=== PATIENT | female | born 1940 | race Caucasian/White ===

== ENCOUNTER → 2017-03-19 | Outpatient (CLI) | payer MEDICARE, OTHER ==
[~2017-03-19] MED LIST: ASPI-1471 PO; ASPI-757 PO; ASPI81TA94 PO; BIOT1000 PO; BIOT1TAB12 PO; CALC600T72 PO; CELE-1 PO; CELE200C7 PO; CHOL200074 PO; DIA5 PO; GABA-549 PO; HYDR-385 PO; HYDR-389 PO; HYDR-4308 PO; HYDR-4309 PO; IBUP-56 PO; IOPAMIDOL 76% 75 ML INFUS BTL 75 ML ONE; LEVO-85 PO; LEVO25TA61 PO; LEVO50TA86 PO; MELO-207 PO; METO-253 PO; METO-259 PO; METO25TA23 PO; NS 0.9% 50 ML VIAL 50 ML ONE; OMEG-11 PO; OMEP-125 PO; OMEP-153 PO; OXYC-823 PO; PNEU0.5D3 IM; RANI-324 PO; RED600CA15 PO; RED600CA19 PO; RIZA10TA20 PO; SIMV-54 PO; SULF-198 PO; TRAM-420 PO; UBID100C33 PO; UBID10CA11 PO; [UNRECOGNIZED DRUG - CODE] TP
[2017-03-19 10:51] LABS: PLATELET COUNT, AUTOMATED 223 K/uL (150-450)
--- NOTE | 2017-03-19 13:47 | RADIOLOGY IMAGING REPORT ---
FACILITY: [facility] - [place] PATIENT NAME: Luiza Rosen : 1940 MR: [id number] V: [id number] EXAM DATE: ORDERING PHYSICIAN: CALLIE GARLAND TECHNOLOGIST: Location: [facility] Patient: Luiza Rosen : 1940 Visit/Account:[id number] Date of Sevice: 03/19/2017 ABDOMEN/PELVIS WITH CONTRAST HISTORY: RLQ pain for 4 days TECHNIQUE: Following administration of IV contrast contiguous axial images acquired through the abdom en/pelvis. Coronal and sagittal reformatting also performed. Dose Lowering Technique One of the following dose optimization techniques was utilized in the performance of this exam: Autom ated exposure control; adjustment of the mA and/or kV according to the patient's size; or use of an i terative reconstruction technique. Specific details can be referenced in the facility's radiology C T exam operational policy. CONTRAST: 75 mL Isovue-370 COMPARISON: July 04, 2015 FINDINGS: Visualized lung bases: Negative. Hepatobiliary: Negative. Spleen: Negative. Adrenals: Negative. Pancreas: Negative. Kidneys ureters or bladder: Negative. Genitalia: Uterus not identified GI: There is mild diverticulosis left-sided colon although no CT evidence of acute diverticulitis. There is a moderate amount of fecal material seen throughout the colon which can be seen with constip ation There is no evidence of bowel wall thickening or bowel obstruction. The appendix is visualized and is fluid-filled but does not appear dilated. No inflammatory change seen in the periappendiceal fat. Vessels/spaces/nodes: There are several small subcentimeter mesenteric lymph nodes in the right lowe r quadrant and several which peroneal lymph nodes. The largest measures 1 x 1 x 1.3 cm. There are m oderate vascular calcifications present Bones/soft tissues: There postsurgical changes from posterior lumbar interbody fusion at L4-5. Ther e is severe disc space narrowing and sclerosis of the adjacent endplates and anterior subluxation at L3-4. There is a small umbilical hernia containing fat Additional findings: None pertinent. IMPRESSION: Mild diverticulosis left-sided colon although no CT evidence of acute diverticulitis Is a moderate amount of fecal material seen in the colon which can be seen with constipation Several small mesenteric and right peroneal lymph nodes. These are likely reactive although if of co ncern short-term interval follow-up may be helpful Small umbilical hernia containing fat Postsurgical changes of the lumbar spine as described Report Dictated By: Angelita Martell MD at 03/19/2017 12:21 PM Report E-Signed By: Angelita Martell MD at 03/19/2017 1:41 PM WSN:[email or web address]
== END ==
LOC: LAB 10:11
PROVIDERS: ATTEND Emergency Medicine
DX: K57.30 Diverticulosis of large intestine without perforation or abscess without bleeding (principal); R59.0 Localized enlarged lymph nodes; K42.9 Umbilical hernia without obstruction or gangrene
CPT/HCPCS: 36415; 74177; 81001; 85025; 86140; J7050; Q9967; 82040; 82247; 82310; 82374; 82435; 82565; 82947; 84075; 84132; 84155; 84295; 84450; 84460; 84520

== ENCOUNTER 2017-03-22 06:30 | Emergency (ER) | payer MEDICARE, OTHER ==
[~2017-03-22] VITALS: Ht 160 cm; Wt 59.0 kg
[~2017-03-22 06:30] MED LIST changes: -HYDR-4309 PO; -IOPAMIDOL 76% 75 ML INFUS BTL 75 ML ONE; -LEVO-85 PO; -NS 0.9% 50 ML VIAL 50 ML ONE
[2017-03-22] MEDS ORDERED: NS(*) 0.9% 1000 ML BAG 1,000 ML IV ONE (06:57)
[2017-03-22] MEDS ORDERED: MORPHINE(*) 4 MG/ML SDV IVP ONE (07:00)
--- NOTE | 2017-03-22 07:00 | ER Report ---
History and Physical Time Seen By MD: 06:58 Hx. of Stated Complaint: right, lower abdominal, flank and back pain that started approximately 7 days ago. newest pain started last night at approximately 11pm HPI/ROS CHIEF COMPLAINT: Right sided flank and abdominal pain HISTORY OF PRESENT ILLNESS: This is a 76-year-old female comes in with right- sided abdominal discomfort for the last 6 days. Patient has had this pain and discomfort localized to the right flank and right upper abdominal area. Patient was CT scanned and was in 48 hours ago which showed some mild diverticulosis without diverticulitis some mild lymphadenopathy most likely adenitis but otherwise unremarkable examination blood work also performed unremarkable patient returns today [address] scan with the same complaint. Patient has been following up with primary care. Patient denies any nausea vomiting diarrhea fever chills. Patient denies any chest pain or shortness of breath. Patient has no additional complaints this time. REVIEW OF SYSTEMS: Respiratory: No cough, no dyspnea. Cardiovascular: No chest pain, no palpitations. Gastrointestinal: Right upper abdominal and right flank pain Musculoskeletal: No back pain. Remainder of the 14 system rev: Yes Allergies: Coded Allergies: solifenacin (Unverified Allergy, Intermediate, vision changes, 03/22/17) erythromycin base (Verified Allergy, Mild, 03/22/17) rofecoxib (Verified Allergy, Mild, 03/22/17) NSAIDS (Non-Steroidal Anti-Inflamma (Unverified Allergy, Unknown, stomach upset, 03/22/17) tramadol (Verified Adverse Reaction, Intermediate, Headaches and foginess , 03/22/17) Home Meds Active Scripts Simvastatin (SIMVASTATIN) 40 Mg Tablet, 40 MG PO HS, #90 TAB 3 Refills Prov:CALLIE GARLAND MD 02/18/17 Metoprolol Succinate (METOPROLOL SUCCINATE) 25 Mg Tab.er.24h, 1 TAB PO QDAY, # 90 TAB 3 Refills Prov:CALLIE GARLAND MD 02/18/17 Ranitidine Hcl (ZANTAC) 150 Mg Tablet, 150 MG PO DAILY, #90 TAB 3 Refills Prov:CALLIE GARLAND MD 02/18/17 Reported Medications Aspirin (ASPIR 81) 81 Mg Tablet.dr, 81 MG PO QDAY, TAB 02/18/17 Biotin (Jae Biotin) 10,000 Mcg Capsule, 87387 MCG PO DAILY 01/15/15 Discontinued Scripts Acetaminophen/Hydrocodone (HYDROCODON-ACETAMINOPH 7.5-325) 1 Each Ea, 1 EACH PO BID for PAIN, #60 EA Take half an hour before physical therpay Prov:CALLIE GARLAND MD 06/11/16 Reviewed Nurses Notes: Yes Old Medical Records Reviewed: Yes Hx Smoking: Yes (SMOKED 29 YEARS: 1PPD. QUIT 1987.) Smoking Status: Former Smoker Exposure to Second Hand Smoke?: No Hx Substance Use Disorder: No Hx Alcohol Use: No Constitutional Vital Sign - Last 24 Hours 03/22/17 06:35 Temp 98.6 Pulse 103 Resp 16 B/P (MAP) 138/78 Pulse Ox 97 O2 Delivery Room Air Physical Exam General Appearance: The patient is alert, has no immediate need for airway protection and no current signs of toxicity. [ ] Eyes: Pupils equal and round no injection. Respiratory: Chest is non tender, lungs are clear to auscultation. Cardiac: regular rate and rhythm [ ] Gastrointestinal: Abdominal examination demonstrates some pain and tenderness to the right upper quadrant positive Mckeon sign some mild right flank pain no sign of obvious shingles but does have a slight red pruritic rash on the right flank area she said that she has sensitive skin is been putting an Geo wrap in that area. Musculoskeletal: Neck: Neck is supple and non tender. Extremities have full range of motion and are non tender. Skin: No rashes or lesions. [ ] DIFFERENTIAL DIAGNOSIS: After history and physical exam differential diagnosis was considered for gallbladder cholelithiasis choledocholithiasis shingles versus diverticulitis or colitis versus diverticulosis Medical Decision Making Data Points Result Diagram: 03/22/17 0722 03/22/17 0722 Laboratory Hematology Test 03/22/17 07:02 03/22/17 07:22 Urine Color Yellow Urine Clarity Slightly-cloudy Urine pH 5.0 pH (4.8-9.5) Urine Specific [place] 1.019 Urine Protein Negative mg/dL (NEGATIVE) Urine Glucose (UA) Negative mg/dL (NEGATIVE) Urine Ketones Negative mg/dL (NEGATIVE) Urine Blood Negative (NEGATIVE) Urine Nitrite Negative (NEGATIVE) Urine Bilirubin Negative (NEGATIVE) Urine Urobilinogen Negative mg/dL (0.2-1.9) Urine Leukocyte Esterase Moderate (NEGATIVE) Urine RBC 6 /HPF (0-2/HPF) Urine WBC 21 /HPF (0-5/HPF) Urine Squamous Epithelial Cells Many /LPF (</=FEW) Urine Transitional Epithelial Cells Few /LPF (NONE-FEW) Urine Bacteria Negative /HPF (NONE-FEW) Urine Mucus Few /HPF (NONE-FEW) Red Blood Count 5.14 M/uL (4.17-5.56) Mean Corpuscular Volume 94.9 fL (80.0-96.0) Mean Corpuscular Hemoglobin 31.6 pg (26.0-33.0) Mean Corpuscular Hemoglobin Concent 33.3 g/dL (32.0-36.0) Red Cell Distribution Width 13.4 % (11.5-14.5) Mean Platelet Volume 8.6 fL (7.2-11.1) Neutrophils (%) (Auto) 73.0 % (39.4-72.5) Lymphocytes (%) (Auto) 16.4 % (17.6-49.6) Monocytes (%) (Auto) 7.9 % (4.1-12.4) Eosinophils (%) (Auto) 2.2 % (0.4-6.7) Basophils (%) (Auto) 0.5 % (0.3-1.4) Nucleated RBC Relative Count (auto) 0.1 /100WBC Neutrophils # (Auto) 5.7 K/uL (2.0-7.4) Lymphocytes # (Auto) 1.3 K/uL (1.3-3.6) Monocytes # (Auto) 0.6 K/uL (0.3-1.0) Eosinophils # (Auto) 0.2 K/uL (0.0-0.5) Basophils # (Auto) 0.0 K/uL (0.0-0.1) Nucleated RBC Absolute Count (auto) 0.01 K/uL Prothrombin Time 12.7 seconds (12.0-14.4) Prothromb Time International Ratio 0.95 Activated Partial Thromboplast Time 29 seconds (23-35) Sodium Level 141 mmol/L (137-145) Potassium Level 3.8 mmol/L (3.5-5.0) Chloride Level 101 mmol/L (98-107) Carbon Dioxide Level 28 mmol/L (22-31) Blood Urea Nitrogen 15 mg/dl (7-18) Creatinine 0.90 mg/dl (0.52-1.04) Glomerular Filtration Rate Calc > 60.0 Random Glucose 95 mg/dl (75-110) Calcium Level 9.8 mg/dl (8.4-10.2) Total Bilirubin 1.0 mg/dl (0.2-1.3) Aspartate Amino Transf (AST/SGOT) 33 U/L (0-35) Alanine Aminotransferase (ALT/SGPT) 38 U/L (0-56) Alkaline Phosphatase 86 U/L (0-126) Total Protein 7.3 gm/dl (6.3-8.2) Albumin 4.3 g/dl (3.5-5.0) Lipase 82 U/L (23-300) Chemistry Test 03/22/17 07:02 03/22/17 07:22 Urine Color Yellow Urine Clarity Slightly-cloudy Urine pH 5.0 pH (4.8-9.5) Urine Specific [place] 1.019 Urine Protein Negative mg/dL (NEGATIVE) Urine Glucose (UA) Negative mg/dL (NEGATIVE) Urine Ketones Negative mg/dL (NEGATIVE) Urine Blood Negative (NEGATIVE) Urine Nitrite Negative (NEGATIVE) Urine Bilirubin Negative (NEGATIVE) Urine Urobilinogen Negative mg/dL (0.2-1.9) Urine Leukocyte Esterase Moderate (NEGATIVE) Urine RBC 6 /HPF (0-2/HPF) Urine WBC 21 /HPF (0-5/HPF) Urine Squamous Epithelial Cells Many /LPF (</=FEW) Urine Transitional Epithelial Cells Few /LPF (NONE-FEW) Urine Bacteria Negative /HPF (NONE-FEW) Urine Mucus Few /HPF (NONE-FEW) White Blood Count 7.9 k/uL (4.5-11.0) Red Blood Count 5.14 M/uL (4.17-5.56) Hemoglobin 16.2 g/dL (12.0-16.0) Hematocrit 48.8 % (34.0-47.0) Mean Corpuscular Volume 94.9 fL (80.0-96.0) Mean Corpuscular Hemoglobin 31.6 pg (26.0-33.0) Mean Corpuscular Hemoglobin Concent 33.3 g/dL (32.0-36.0) Red Cell Distribution Width 13.4 % (11.5-14.5) Platelet Count 206 K/uL (150-450) Mean Platelet Volume 8.6 fL (7.2-11.1) Neutrophils (%) (Auto) 73.0 % (39.4-72.5) Lymphocytes (%) (Auto) 16.4 % (17.6-49.6) Monocytes (%) (Auto) 7.9 % (4.1-12.4) Eosinophils (%) (Auto) 2.2 % (0.4-6.7) Basophils (%) (Auto) 0.5 % (0.3-1.4) Nucleated RBC Relative Count (auto) 0.1 /100WBC Neutrophils # (Auto) 5.7 K/uL (2.0-7.4) Lymphocytes # (Auto) 1.3 K/uL (1.3-3.6) Monocytes # (Auto) 0.6 K/uL (0.3-1.0) Eosinophils # (Auto) 0.2 K/uL (0.0-0.5) Basophils # (Auto) 0.0 K/uL (0.0-0.1) Nucleated RBC Absolute Count (auto) 0.01 K/uL Prothrombin Time 12.7 seconds (12.0-14.4) Prothromb Time International Ratio 0.95 Activated Partial Thromboplast Time 29 seconds (23-35) Glomerular Filtration Rate Calc > 60.0 Calcium Level 9.8 mg/dl (8.4-10.2) Total Bilirubin 1.0 mg/dl (0.2-1.3) Aspartate Amino Transf (AST/SGOT) 33 U/L (0-35) Alanine Aminotransferase (ALT/SGPT) 38 U/L (0-56) Alkaline Phosphatase 86 U/L (0-126) Total Protein 7.3 gm/dl (6.3-8.2) Albumin 4.3 g/dl (3.5-5.0) Lipase 82 U/L (23-300) Coagulation Test 03/22/17 07:22 Prothrombin Time 12.7 seconds Prothromb Time International Ratio 0.95 Activated Partial Thromboplast Time 29 seconds Urinalysis Test 03/22/17 07:02 Urine Color Yellow Urine Clarity Slightly-cloudy Urine pH 5.0 pH (4.8-9.5) Urine Specific [place] 1.019 Urine Protein Negative mg/dL (NEGATIVE) Urine Glucose (UA) Negative mg/dL (NEGATIVE) Urine Ketones Negative mg/dL (NEGATIVE) Urine Blood Negative (NEGATIVE) Urine Nitrite Negative (NEGATIVE) Urine Bilirubin Negative (NEGATIVE) Urine Urobilinogen Negative mg/dL (0.2-1.9) Urine Leukocyte Esterase Moderate (NEGATIVE) Urine RBC 6 /HPF (0-2/HPF) Urine WBC 21 /HPF (0-5/HPF) Urine Squamous Epithelial Cells Many /LPF (</=FEW) Urine Transitional Epithelial Cells Few /LPF (NONE-FEW) Urine Bacteria Negative /HPF (NONE-FEW) Urine Mucus Few /HPF (NONE-FEW) ED Course/Re-evaluation ED Course ED clinical course medical decision making this 76-year-old female comes back to the ER with right-sided abdominal and right-sided flank pain CAT scan was done less than 48 hours ago was negative except for some diverticulosis an early diverticulitis she's not in spite of this of urinary tract infection and did ultrasound her gallbladder this was negative labsshowednothingacuteIwillstartheronantibioticsfortheUTIandforthediverticulitis andhaveherfollow -upwithprimarycarewithpainmedication Decision to Disposition Date: Mar 22, 2017 Decision to Disposition Time: 09:31 Depart Departure Latest Vital Signs Vital Signs Date Time Temp Pulse Resp B/P (MAP) Pulse Ox O2 Delivery O2 Flow Rate FiO2 03/22/17 06:35 98.6 103 16 138/78 97 Room Air Impression: Primary Impression: Urinary tract infection Additional Impression: Diverticulitis Condition: Improved Disposition: HOME OR SELF-CARE Referrals: CALLIE GARLAND MD (PCP) 5 Days New Scripts Hydrocodone Bit/Acetaminophen (NORCO 5-325 TABLET) 1 Each Tablet 1 EACH PO 2-3XD for PAIN for 7 Days, #20 TAB Prov: JOSUE KAPLAN MD 03/22/17 Levofloxacin 500 Mg Tab (LEVAQUIN 500 MG TAB) 500 Mg Tablet 500 MG PO BID for 7 Days, #14 TAB Prov: JOSUE KAPLAN MD 03/22/17 Patient Instructions: Diverticulitis (DC), Urinary Tract Infection in Women (DC ) Problem Qualifiers JOSUE KAPLAN MD Mar 22, 2017 07:00
[2017-03-22] MEDS ORDERED: MORPHINE 4 MG/ML SYR ONE (07:11)
[2017-03-22 07:39] LABS: PLATELET COUNT, AUTOMATED 206 K/uL (150-450)
[2017-03-22 07:45] LABS: INR 0.95
--- NOTE | 2017-03-22 08:21 | RADIOLOGY IMAGING REPORT ---
[place] [facility] [place] Luiza Rosen : 1940 MR: [id number] V: [id number] EXAM DATE: ORDERING PHYSICIAN: JOSUE KAPLAN TECHNOLOGIST: [place] [facility] [place]: Luiza Rosen : 1940 Visit/Account:[id number] Date of Sevice: 03/22/2017 Exam type: CHEST PA AND LAT History: Abdominal pain radiating towards her back Comparison: 02/24/2016 Findings: Lungs are hyperinflated. There is no focal consolidation, pleural effusion or pneumothorax. Heart size is slightly prominent. Pulmonary arteries are enlarged but unchanged. The osseous structures demonstrate a mild scoliosis with degenerative changes.. IMPRESSION: 1. No acute cardiopulmonary disease. 2. Pulmonary hyperinflation. 3. Mildly enlarged heart with large pulmonary arteries, unchanged. Report Dictated By: Nael Gamboa MD at 03/22/2017 8:14 AM Report E-Signed By: Nael Gamboa MD at 03/22/2017 8:16 AM WSN:[id number]
--- NOTE | 2017-03-22 09:11 | RADIOLOGY IMAGING REPORT ---
FACILITY: [facility] PATIENT NAME: Luiza Rosen : 1940 MR: [id number] V: [id number] EXAM DATE: ORDERING PHYSICIAN: JOSUE KAPLAN TECHNOLOGIST: Location: [facility] Patient: Luiza Rosen : 1940 Visit/Account:[id number] Date of Sevice: 03/22/2017 EXAMINATION: LIMITED ABDOMINAL ULTRASOUND DATE: 03/22/2017 6:57 AM INDICATION: pain TECHNIQUE: Dunn scale, color and pulsed Doppler ultrasound images of the right upper quadrant were ob tained. COMPARISON: CT abdomen and pelvis 03/19/2017. FINDINGS: Pancreas: The pancreas is suboptimally visualized in the tail. There is no significant abnormality in the visualized portion. Aorta and IVC: The imaged abdominal aorta and IVC are patent. Liver: The liver shows normal shape, parenchymal echogenicity and echotexture. The right hepatic lobe measures 11 cm craniocaudal, which is within normal limits. There is no definite focal lesion in the liver. The main portal vein is patent with hepatopedal flow. Bile ducts: The intrahepatic bile ducts are not dilated. The common bile duct measures 4 mm in diamet er, which is normal. Gallbladder: The gall bladder is unremarkable with no cholelithiasis, wall thickening, pericholecysti c fluid, or sonographic Mckeon's sign. Kidney: The right kidney measures 8.6 x 3.9 x 4.7 cm. The parenchymal echogenicity and thickness appe ar within normal range. No focal lesion is demonstrated. No hydronephrosis. Normal low resistance ar terial waveforms. No ascites. IMPRESSION: Unremarkable right upper quadrant ultrasound. Report Dictated By: Josiah Garcia MD at 03/22/2017 9:05 AM Report E-Signed By: Josiah Garcia MD at 03/22/2017 9:08 AM WSN:[id number]
[2017-03-22] MEDS ORDERED: LEVO-85 PO (09:33)
[2017-03-22] MEDS ORDERED: HYDR-4309 PO (09:33)
[2017-03-22 09:38] VITALS: BP 114/72
[2017-03-25] MEDS ORDERED: SULF-198 PO (11:58)
[2017-03-25] MEDS ORDERED: ONDA4TAB PO (12:00)
[2017-03-25] MEDS ORDERED: MELO-205 PO (12:00)
== END 2017-03-22 09:38 | disposition home or self-care (01) ==
LOC: ER 06:40
DX: N39.0 Urinary tract infection, site not specified (principal); K57.92 Diverticulitis of intestine, part unspecified, without perforation or abscess without bleeding
CPT/HCPCS: 71046; 76705; 81001; 83690; 85025; 85610; 85730; 96361; 96374; 99284; J2270; J7030; 82040; 82247; 82310; 82374; 82435; 82565; 82947; 84075; 84132; 84155; 84295; 84450; 84460; 84520

== ENCOUNTER → 2017-04-01 | Outpatient (CLI) | payer MEDICARE, OTHER ==
[~2017-04-01] MED LIST changes: +HYDR-4309 PO; +LEVO-85 PO; +MELO-205 PO; +ONDA4TAB PO
== END ==
LOC: LAB 10:47
PROVIDERS: ATTEND Emergency Medicine
DX: N39.0 Urinary tract infection, site not specified (principal)
CPT/HCPCS: 81001

== ENCOUNTER → 2017-04-07 | Outpatient (CLI) | payer MEDICARE, OTHER ==
[~2017-04-07] MED LIST changes: +CIPR-214 PO
== END ==
LOC: LAB 14:22
PROVIDERS: ATTEND Emergency Medicine
DX: R19.7 Diarrhea, unspecified (principal)
CPT/HCPCS: 87045; 87177; 87324; 87449

== ENCOUNTER → 2018-01-07 | Outpatient (CLI) | payer MEDICARE, OTHER ==
[~2018-01-07] MED LIST changes: -HYDR-4308 PO; -HYDR-4309 PO; +HYDR-653 PO; +HYDR-654 PO; -RANI-324 PO; +RANI-366 PO
--- NOTE | 2018-01-07 15:47 | RADIOLOGY IMAGING REPORT ---
FACILITY: [facility] - [place] PATIENT NAME: CONSTANCE HERNANDEZ : [id number] MR: [id number] V: [id number] EXAM DATE: [id number] ORDERING PHYSICIAN: CALLIE GARLAND TECHNOLOGIST: Candi See PROCEDURE:BILATERAL DIGITAL SCREENING MAMMOGRAM WITH CAD ASSISTED INTERPRETATION & 3D TOMOSYNTHESIS COMPARISON:Prior mammograms 01/06/17, 12/24/15, 12/18/14, 05/25/13, 02/04/12, 02/02/11. INDICATIONS:SCREENING FINDINGS: There are bilateral subpectoral breast implants in place. There is no evidence of implant rupture. Course capsular calcifications are again seen anterior to the implants. There is a biopsy clip in the medical inferior portion of the Right breast. Moderately dense fibroglandular tissue is seen anterior to the implants. The parenchymal pattern has remained stable allowing for difference in mammographic technique & patient positioning. There is no evidence of malignant appearing mass, malignant appearing calcifications or other secondary sign of malignancy in either breast. DIAGNOSTIC CATEGORY 2--BENIGN FINDING. RECOMMENDATIONS: ROUTINE MAMMOGRAM AND CLINICAL EVALUATION. IMPRESSION: BIRADS 2: Benign finding. No significant abnormality is seen. Dictated by: Angelita Martell M.D. on 01/07/2018 at 15:22 Transcribed by: SANTANA on 01/07/2018 at 15:30 Approved by: Angelita Martell M.D. on 01/07/2018 at 15:47 [facility]
== END ==
LOC: MAMO 02:40
PROVIDERS: ATTEND Emergency Medicine
DX: Z12.31 Encounter for screening mammogram for malignant neoplasm of breast (principal)
CPT/HCPCS: 77063; 77067

== ENCOUNTER → 2018-02-17 | Outpatient (CLI) | payer MEDICARE, OTHER ==
[2018-02-17 15:14] LABS: PLATELET COUNT, AUTOMATED 223 K/uL (150-450)
[2018-02-17 15:21] LABS: LDL CHOLESTEROL 41 mg/dl
== END ==
LOC: LAB 14:19
PROVIDERS: ATTEND Emergency Medicine
DX: E78.5 Hyperlipidemia, unspecified (principal); M85.80 Other specified disorders of bone density and structure, unspecified site
CPT/HCPCS: 36415; 82040; 82247; 82306; 82310; 82374; 82435; 82465; 82565; 82947; 83718; 84075; 84132; 84155; 84295; 84450; 84460; 84478; 84520; 85025

== ENCOUNTER 2018-04-30 04:23 | Emergency (ER) | payer MEDICARE, OTHER ==
--- NOTE | 2018-04-30 04:27 | ER Report ---
History and Physical Time Seen By MD: 04:25 (ISABELLE DELACRUZ DO) Time Seen By MD: 09:45 (RADHA MADSEN DO) HPI/ROS CHIEF COMPLAINT: Abdominal pain HISTORY OF PRESENT ILLNESS: 77-year-old female presents with upper abdominal pain radiating into her back. Patient states it feels similar to previous attack when she had pancreatitis 2001. Patient began having dry heaves and vomiting at 11 PM last night. Patient notes no diarrhea. She notes no fever or chills. REVIEW OF SYSTEMS: Respiratory: No cough, no dyspnea. Cardiovascular: No chest pain, no palpitations. Gastrointestinal: As above Musculoskeletal: As above (ISABELLE DELACRUZ DO) HPI/ROS Please see Dr. Delacruz's note (RADHA MADSEN DO) Allergies: Coded Allergies: solifenacin (Unverified Allergy, Intermediate, vision changes, 04/30/18) erythromycin base (Verified Allergy, Mild, 04/30/18) rofecoxib (Verified Allergy, Mild, 04/30/18) NSAIDS (Non-Steroidal Anti-Inflamma (Unverified Allergy, Unknown, stomach upset, 04/30/18) levofloxacin (Verified Allergy, Unknown, 04/30/18) tramadol (Verified Adverse Reaction, Intermediate, Headaches and foginess, 04/30/18) Home Meds Active Scripts Hydrocodone Bit/Acetaminophen (HYDROCODON-ACETAMINOPHEN 5-325) 1 Each Tablet, 1 EACH PO Q4-6H PRN for PAIN, #12 TAKE ONE TABLET BY MOUTH EVERY 4-6 HOURS NEEDED FOR PAIN Prov:ISABELLE DELACRUZ DO 04/30/18 Ondansetron 4 Mg Odt (ONDANSETRON 4 MG ODT) 4 Mg Tab.rapdis, 4 MG PO Q6H PRN for NAUSEA/VOMITING, #10 TAB Prov:ISABELLE DELACRUZ DO 04/30/18 Meloxicam (MELOXICAM) 7.5 Mg Tablet, 2 TAB PO QDAY, #180 TAB 3 Refills Take 1-2 tabs a day as needed. Maximum of 2 tabs a day Prov:CALLIE GARLAND MD 02/28/18 Metoprolol Succinate (METOPROLOL SUCCINATE) 25 Mg Tab.er.24h, 1 TAB PO QDAY, #90 TAB 3 Refills Prov:CALLIE GARLAND MD 02/25/18 Simvastatin (SIMVASTATIN) 40 Mg Tablet, 40 MG PO HS, #90 TAB 3 Refills Prov:CALLIE GARLAND MD 02/23/18 Reported Medications Aspirin (ASPIR 81) 81 Mg Tablet., 81 MG PO QDAY, TAB 02/18/17 Biotin (Jae Biotin) 10,000 Mcg Capsule, 31765 MCG PO DAILY 01/15/15 Discontinued Scripts Ranitidine Hcl (ZANTAC) 150 Mg Tablet, 150 MG PO DAILY, #90 TAB 3 Refills Prov:CALLIE GARLAND MD 03/24/18 Past Medical/Surgical History Past Medical History Neurologic: Reports hx of: migraine (none since 2005. ) other neurologic history (cervical radiculitis with pain into right arm at times. no meds for it, resolved.) Cardiovascular: Reports hx of: cardiac arrhythmias (paroxysmal SVT controlled with metoprolol. Was seeing Dr. Swan.) hyperlipidemia other CV history (normal coronary angio in 1990 in [place]. ) Gastrointestinal: Reports hx of: GERD pancreatitis (2006: 4cm "mass" but cause not found., biopsy ngative) 2 Musculoskeletal: Reports hx of: osteoarthritis (more in hands. ) osteopenia (Resolved) Endocrine: Reports hx of: hypothyroidism Events: REPORTS HX OF: Other events (Dog bite right calf 2012. abstracted 05/06. Annual in 2012. ) Past Surgical History HEENT: Reports hx of: cataract extraction (2016) Gynecologic: Reports hx of: hysterectomy (1982) Breast: Reports hx of: breast biopsy mastectomy, bilateral (prophylactic 1977) Musculoskeletal: Reports hx of: arthroscopy (R and L knee) carpal tunnel release (1977, 1982) spinal surgery (lumbar x2, cervical x1) total joint replacement (RTK , Left Total knee replacement on 03/24/16) (ISABELLE DELACRUZ DO) Reviewed Nurses Notes: Yes Old Medical Records Reviewed: Yes (ISABELLE DELACRUZ DO) Hx Smoking: Yes (SMOKED 29 YEARS: 1PPD. QUIT 1987.) Smoking Status: Former Smoker Exposure to Second Hand Smoke?: No Hx Substance Use Disorder: No Hx Alcohol Use: No (ISABELLE DELACRUZ DO) Constitutional Vital Sign - Last 24 Hours 04/30/18 04/30/18 04/30/18 04/30/18 04:29 04:30 04:38 04:53 Pulse 69 51 58 Resp 14 B/P (MAP) 156/75 156/75 (102) Pulse Ox 90 92 85 O2 Delivery Room Air 04/30/18 04/30/18 04/30/18 04/30/18 05:00 05:08 05:23 05:38 Pulse 48 55 65 B/P (MAP) 131/59 (83) Pulse Ox 96 97 98 04/30/18 04/30/18 04/30/18 04/30/18 05:53 06:00 06:19 08:05 Pulse 51 63 B/P (MAP) 134/65 (88) Pulse Ox 96 98 O2 Delivery Nasal Cannula O2 Flow Rate 2.0 2 04/30/18 04/30/18 04/30/18 04/30/18 08:17 08:30 08:35 09:00 Pulse 63 B/P (MAP) 129/79 (96) 95/84 (88) 114/59 (77) Pulse Ox 99 O2 Delivery Nasal Cannula O2 Flow Rate 2 04/30/18 09:30 B/P (MAP) 105/51 (69) (RADHA MADSEN DO) Physical Exam General Appearance: The patient is alert, has no immediate need for airway protection and no current signs of toxicity. Vital signs stable, afebrile, pulse ox normal on the moderate distress HEENT: Pupils equal and round no injection. TMs normal, oropharynx without erythema Respiratory: Chest is non tender, lungs are clear to auscultation. Cardiac: regular rate and rhythm Gastrointestinal: Abdomen is soft, moderate bilateral upper quadrant tenderness, no rebound or guarding, no masses, bowel sounds normal. Musculoskeletal: Neck: Neck is supple and non tender. No lymphadenopathy Extremities have full range of motion and are non tender. Skin: No rashes or lesions. DIFFERENTIAL DIAGNOSIS: After history and physical exam differential diagnosis was considered for abdominal pain including but not limited to appendicitis, cholecystitis, gastritis and urinary tract infection. (ISABELLE DELACRUZ DO) Physical Exam Please see Dr. Delacruz's note (RADHA MADSEN DO) Medical Decision Making Data Points Result Diagram: 04/30/18 0433 04/30/18 0433 Laboratory Hematology Test 04/30/18 04:33 04/30/18 05:40 Red Blood Count 4.73 M/uL (4.17-5.56) Mean Corpuscular Volume 96.1 fL (80.0-96.0) Mean Corpuscular Hemoglobin 31.8 pg (26.0-33.0) Mean Corpuscular Hemoglobin Concent 33.1 g/dL (32.0-36.0) Red Cell Distribution Width 13.5 % (11.5-14.5) Mean Platelet Volume 8.8 fL (7.2-11.1) Neutrophils (%) (Auto) 80.6 % (39.4-72.5) Lymphocytes (%) (Auto) 13.2 % (17.6-49.6) Monocytes (%) (Auto) 4.2 % (4.1-12.4) Eosinophils (%) (Auto) 1.2 % (0.4-6.7) Basophils (%) (Auto) 0.8 % (0.3-1.4) Nucleated RBC Relative Count (auto) 0.0 /100WBC Neutrophils # (Auto) 6.8 K/uL (2.0-7.4) Lymphocytes # (Auto) 1.1 K/uL (1.3-3.6) Monocytes # (Auto) 0.4 K/uL (0.3-1.0) Eosinophils # (Auto) 0.1 K/uL (0.0-0.5) Basophils # (Auto) 0.1 K/uL (0.0-0.1) Nucleated RBC Absolute Count (auto) 0.00 K/uL Sodium Level 138 mmol/L (137-145) Potassium Level 4.2 mmol/L (3.5-5.0) Chloride Level 103 mmol/L (98-107) Carbon Dioxide Level 30 mmol/L (22-31) Blood Urea Nitrogen 20 mg/dl (7-18) Creatinine 1.00 mg/dl (0.52-1.04) Glomerular Filtration Rate Calc 53.6 Random Glucose 151 mg/dl (75-110) Calcium Level 9.8 mg/dl (8.4-10.2) Total Bilirubin 0.7 mg/dl (0.2-1.3) Aspartate Amino Transf (AST/SGOT) 35 U/L (0-35) Alanine Aminotransferase (ALT/SGPT) 50 U/L (0-56) Alkaline Phosphatase 115 U/L (0-126) Total Protein 7.6 g/dl (6.3-8.2) Albumin 4.8 g/dl (3.5-5.0) Amylase Level 79 U/L (0-110) Lipase 93 U/L (23-300) Urine Color Yellow Urine Clarity Clear Urine pH 6.0 pH (4.8-9.5) Urine Specific [place] 1.025 Urine Protein Negative mg/dL (NEGATIVE) Urine Glucose (UA) Negative mg/dL (NEGATIVE) Urine Ketones Negative mg/dL (NEGATIVE) Urine Blood Negative (NEGATIVE) Urine Nitrite Negative (NEGATIVE) Urine Bilirubin Negative (NEGATIVE) Urine Urobilinogen Negative mg/dL (0.2-1.9) Urine Leukocyte Esterase Negative (NEGATIVE) Urine RBC 1 /HPF (0-2/HPF) Urine WBC 1 /HPF (0-5/HPF) Urine Squamous Epithelial Cells Few /LPF (</=FEW) Urine Bacteria Negative /HPF (NONE-FEW) Urine Mucus None /HPF (NONE-FEW) Chemistry Test 04/30/18 04:33 04/30/18 05:40 White Blood Count 8.4 k/uL (4.5-11.0) Red Blood Count 4.73 M/uL (4.17-5.56) Hemoglobin 15.0 g/dL (12.0-16.0) Hematocrit 45.4 % (34.0-47.0) Mean Corpuscular Volume 96.1 fL (80.0-96.0) Mean Corpuscular Hemoglobin 31.8 pg (26.0-33.0) Mean Corpuscular Hemoglobin Concent 33.1 g/dL (32.0-36.0) Red Cell Distribution Width 13.5 % (11.5-14.5) Platelet Count 189 K/uL (150-450) Mean Platelet Volume 8.8 fL (7.2-11.1) Neutrophils (%) (Auto) 80.6 % (39.4-72.5) Lymphocytes (%) (Auto) 13.2 % (17.6-49.6) Monocytes (%) (Auto) 4.2 % (4.1-12.4) Eosinophils (%) (Auto) 1.2 % (0.4-6.7) Basophils (%) (Auto) 0.8 % (0.3-1.4) Nucleated RBC Relative Count (auto) 0.0 /100WBC Neutrophils # (Auto) 6.8 K/uL (2.0-7.4) Lymphocytes # (Auto) 1.1 K/uL (1.3-3.6) Monocytes # (Auto) 0.4 K/uL (0.3-1.0) Eosinophils # (Auto) 0.1 K/uL (0.0-0.5) Basophils # (Auto) 0.1 K/uL (0.0-0.1) Nucleated RBC Absolute Count (auto) 0.00 K/uL Glomerular Filtration Rate Calc 53.6 Calcium Level 9.8 mg/dl (8.4-10.2) Total Bilirubin 0.7 mg/dl (0.2-1.3) Aspartate Amino Transf (AST/SGOT) 35 U/L (0-35) Alanine Aminotransferase (ALT/SGPT) 50 U/L (0-56) Alkaline Phosphatase 115 U/L (0-126) Total Protein 7.6 g/dl (6.3-8.2) Albumin 4.8 g/dl (3.5-5.0) Amylase Level 79 U/L (0-110) Lipase 93 U/L (23-300) Urine Color Yellow Urine Clarity Clear Urine pH 6.0 pH (4.8-9.5) Urine Specific [place] 1.025 Urine Protein Negative mg/dL (NEGATIVE) Urine Glucose (UA) Negative mg/dL (NEGATIVE) Urine Ketones Negative mg/dL (NEGATIVE) Urine Blood Negative (NEGATIVE) Urine Nitrite Negative (NEGATIVE) Urine Bilirubin Negative (NEGATIVE) Urine Urobilinogen Negative mg/dL (0.2-1.9) Urine Leukocyte Esterase Negative (NEGATIVE) Urine RBC 1 /HPF (0-2/HPF) Urine WBC 1 /HPF (0-5/HPF) Urine Squamous Epithelial Cells Few /LPF (</=FEW) Urine Bacteria Negative /HPF (NONE-FEW) Urine Mucus None /HPF (NONE-FEW) Urinalysis Test 04/30/18 05:40 Urine Color Yellow Urine Clarity Clear Urine pH 6.0 pH (4.8-9.5) Urine Specific [place] 1.025 Urine Protein Negative mg/dL (NEGATIVE) Urine Glucose (UA) Negative mg/dL (NEGATIVE) Urine Ketones Negative mg/dL (NEGATIVE) Urine Blood Negative (NEGATIVE) Urine Nitrite Negative (NEGATIVE) Urine Bilirubin Negative (NEGATIVE) Urine Urobilinogen Negative mg/dL (0.2-1.9) Urine Leukocyte Esterase Negative (NEGATIVE) Urine RBC 1 /HPF (0-2/HPF) Urine WBC 1 /HPF (0-5/HPF) Urine Squamous Epithelial Cells Few /LPF (</=FEW) Urine Bacteria Negative /HPF (NONE-FEW) Urine Mucus None /HPF (NONE-FEW) (RADHA MADSEN DO) EKG/Imaging Imaging Location: [facility] - [place] Patient: Luiza Rosen : 1940 Visit/Account:[id number] Date of Sevice: 04/30/2018 CT ABDOMEN PELVIS W/ CON HISTORY: mesenteric mass TECHNIQUE: CT abdomen and pelvis with oral contrast only. One of the following dose optimization techniques was utilized in the performance of this exam: automated exposure control; adjustment of the mA and/or kV according to the patient's size; or use of an iterative reconstruction technique. Specific details can be referenced in the facility's radiology CT exam operational policy. COMPARISON: CT abdomen and pelvis 12/28/2018 at 6:[address] abdomen and pelvis 03/19/2017. FINDINGS: Liver/gallbladder: Liver demonstrates normal attenuation. Gallbladder is normal. Spleen: Normal. Adrenals: Normal. Pancreas: Normal enhancement without evidence of mass. Kidneys/: The right and left kidney demonstrate normal enhancement without evidence of hydronephrosis or mass. Both ureters are normal. Pelvis: Contrast is seen in the urinary bladder. GI: There is a soft tissue mass, along the mesenteric root, 3.1 cm. This is unchanged from the prior study. No other abdominal mass is seen. Contrast is seen in the stomach duodenum and proximal third of the small bowel. The colon is normal. Vessels/spaces/nodes: Negative. Bones/soft tissues: There are postoperative changes with hardware in the lumbar spine. Visualized lung bases: Clear. IMPRESSION: Soft tissue mass along the root of the mesentery. This does not appear to communicate with bowel. Differential diagnosis includes lymphoma, gastrointestinal stromal tumor, carcinoid, or metastasis. Due to its location, it would not be amenable to CT-guided biopsy. (RADHA MADSEN DO) ED Course/Re-evaluation Clinical Indication for ER IV: Hydration, IV Access ED Course Patient was admitted to an examination room. H&P was done. The differential diagnosis was considered. Patient was treated with IV fluids, Zofran, fentanyl, her diagnostic studies returned unremarkable. Patient describes bilateral upper quadrant pain radiating to her back, similar to her previous episode of pancreatitis. Although her laboratory studies are unremarkable. 04/30/2018 6:01:13 am is in with continued abdominal pain despite 50 of fentanyl and Zofran. She is in the bed, writhing in discomfort. Will proceed to CT of the abdomen and pelvis with IV contrast. Care was turned over to Dr. Madsen at shift change with the CT results pending. Decision to Disposition Date: Apr 30, 2018 Decision to Disposition Time: 05:50 (ISABELLE DELACRUZ DO) ED Course I assumed patient care from Dr. Delacruz at shift change. CT imaging with IV contrast identified a deep mesenteric mass. It was unclear whether or not the mass was communicating with the bowels oral contrasted CT exam was completed. I discussed the patient with Dr. Shine who recommended moving forward with the oral contrasted study and outpatient follow-up for likely need for laparoscopic biopsy due to location. I updated the patient regarding these findings and she voiced understanding and agreed to follow-up in the outpatient setting with general surgery. Patient was stable at time of discharge Decision to Disposition Date: Apr 30, 2018 Decision to Disposition Time: 09:45 (RADHA MADSEN DO) Depart Departure Latest Vital Signs Vital Signs Date Time Temp Pulse Resp B/P (MAP) Pulse Ox O2 Delivery O2 Flow Rate FiO2 04/30/18 09:30 105/51 (69) 04/30/18 08:35 63 99 Nasal Cannula 2 04/30/18 04:29 14 (RADHA MADSEN DO) Impression: Primary Impression: Abdominal pain Additional Impressions: Vomiting Abdominal mass Condition: Improved Disposition: HOME OR SELF-CARE Referrals: CALLIE GARLAND MD (PCP) New Scripts Hydrocodone Bit/Acetaminophen (HYDROCODON-ACETAMINOPHEN 5-325) 1 Each Tablet 1 EACH PO Q4-6H PRN for PAIN, #12 TAKE ONE TABLET BY MOUTH EVERY 4-6 HOURS NEEDED FOR PAIN Prov: ISABELLE DELACRUZ DO 04/30/18 Ondansetron 4 Mg Odt (ONDANSETRON 4 MG ODT) 4 Mg Tab.rapdis 4 MG PO Q6H PRN for NAUSEA/VOMITING, #10 TAB Prov: ISABELLE DELACRUZ DO 04/30/18 Patient Instructions: Abdominal Pain (ED), Clear Liquid Diet (ED) Additional Instructions: Follow clear liquid diet for 24-48 hours, then advance to the brat diet, bananas , rice, applesauce and toast Follow-up with general surgery in 3-5 days Problem Qualifiers Primary Impression: Abdominal pain Abdominal location: upper abdomen, unspecified Qualified Codes: R10.10 - Upper abdominal pain, unspecified Additional Impressions: Vomiting Vomiting type: unspecified Vomiting Intractability: unspecified Nausea presence: with nausea Qualified Codes: R11.2 - Nausea with vomiting, unspecified ISABELLE DELACRUZ DO Apr 30, 2018 04:27 RADHA MADSEN DO Apr 30, 2018 09:46
[2018-04-30] MEDS ORDERED: ONDANSETRON 4 MG/2 ML VIAL IVP ONE (04:40)
[2018-04-30] MEDS ORDERED: NS(*) 0.9% 1000 ML BAG 1,000 ML IV ONE (04:40)
[2018-04-30] MEDS ORDERED: fentaNYL CITR 100 MCG/2 ML AMP IVP ONE (04:40)
[2018-04-30 04:56] LABS: PLATELET COUNT, AUTOMATED 189 K/uL (150-450)
[2018-04-30] MEDS ORDERED: ONDA4TAB9 PO (05:56)
[2018-04-30] MEDS ORDERED: LOR5/325 PO (05:56)
[2018-04-30] MEDS ORDERED: MORPHINE 4 MG/ML SDV IVP ONE ×2 (06:05→08:15)
[2018-04-30] MEDS ORDERED: IOPAMIDOL 76% 150 ML INFUS BTL 150 ML ONE (06:44)
--- NOTE | 2018-04-30 07:34 | RADIOLOGY IMAGING REPORT ---
FACILITY: [facility] - [place] PATIENT NAME: Luiza Rosen : 1940 MR: [id number] V: [id number] EXAM DATE: ORDERING PHYSICIAN: ISABELLE GALEAS TECHNOLOGIST: Location: [facility] [place] Patient: Luiza Rosen : 1940 Visit/Account:[id number] Date of Sevice: 04/30/2018 CT ABDOMEN PELVIS W/ CON HISTORY: Severe abdominal pain for 2 days. History of pancreatic lesion. COMPARISON: 03/19/2017 and studies dating to 02/05/2006. TECHNIQUE: Axial images were obtained from the lung bases through the symphysis pubis with intravenou s contrast. Sagittal and coronal reformats were performed. One of the following dose optimization techniques was utilized in the performance of this exam: Autom ated exposure control; adjustment of the mA and/or kV according to the patient's size; or use of an i terative reconstruction technique. Specific details can be referenced in the facility's radiology CT exam operational policy. CONTRAST: 75 mL IV [id number]. FINDINGS: Lower chest: There is minimal atelectasis. Liver: New from previous examination is an 8 mm too small to characterize low attenuating lesion in s egment V (image 39 series 2). Gallbladder/biliary: Normal. Pancreas: Normal. There is stable calcification in the pancreatic tail. Spleen: Normal. Adrenals: Normal. Kidneys/ureters/bladder: Normal. GI/mesentery/peritoneal cavity: There is a small type I hiatal hernia. There is no bowel obstruction. There is no wall thickening or pericolonic stranding. The appendix is normal. There is sigmoid diver ticulosis without diverticulitis. There is a macrolobulated 2.7 x 2.7 x 5.4 cm mesenteric lesion with eccentric low-attenuation (axial images 71 through 86 series 2, sagittal image 60, and coronal image 36) that has similar density to adjacent bowel loops, although it does appear to be separate from th em. Vessels: There is mild atherosclerotic disease. No aneurysm. No dissection. Nodes: 1.0 cm short axis diameter retroperitoneal node (image 46 series 2) is unchanged from February 2017. There is an 8 mm short axis diameter retroperitoneal node on image 44, unchanged. Pelvis: Uterus is absent. Ovaries are normal. Bones/vertebra/soft tissues: There are calcifications in the subcutaneous fat of the posterior pelvis , likely calcified granulomas. There is stable changes of posterior fusion at L5-S1. Hardware causes artifact. There is 6 mm anterolisthesis of L3 on L4, unchanged. There is severe degenerative disc dis ease at L3-4, stable. There is 2 mm retrolisthesis of L1 compared to L2, unchanged. There are vacuum clefts at L1-2, L2-3 and L5-S1, as well as T10-11. IMPRESSION: 1. No pancreatic lesion. 2. There is a mesenteric mass adjacent to small bowel loops, although appears separate from them, wit h eccentric low-attenuation, likely necrosis. Follow-up CT scan with oral contrast could be performed to ensure no communication with bowel. Findings are suspicious for malignancy. 3. New 8 mm too small to characterize low attenuating lesion in hepatic segment V. In the setting of potential mesenteric malignancy, metastatic disease is a possibility. These findings were discussed by phone with MIRIAM BROUSSARD on 04/30/2018 7:25 AM. Report Dictated By: Mirtha Smiley at 04/30/2018 6:57 AM Report E-Signed By: Mirtha Smiley at 04/30/2018 7:30 AM WSN:[id number]
[2018-04-30] MEDS ORDERED: DIATRIZOATE MEGL/DIATRIZOA SOD 367 MG/ML SOLN ONE (08:27)
[2018-04-30 09:30] VITALS: BP 105/51
--- NOTE | 2018-04-30 09:31 | RADIOLOGY IMAGING REPORT ---
FACILITY: [facility] PATIENT NAME: Luiza Rosen : 1940 MR: [id number] V: [id number] EXAM DATE: ORDERING PHYSICIAN: RADHA BROUSSARD TECHNOLOGIST: Location: [facility] Patient: Luiza Rosen : 1940 Visit/Account:[id number] Date of Sevice: 04/30/2018 CT ABDOMEN PELVIS W/ CON HISTORY: mesenteric mass TECHNIQUE: CT abdomen and pelvis with oral contrast only. One of the following dose optimization te chniques was utilized in the performance of this exam: automated exposure control; adjustment of the mA and/or kV according to the patient's size; or use of an iterative reconstruction technique. Speci fic details can be referenced in the facility's radiology CT exam operational policy. COMPARISON: CT abdomen and pelvis 12/28/2018 at 6:[address] abdomen and pelvis 03/19/2017. FINDINGS: Liver/gallbladder: Liver demonstrates normal attenuation. Gallbladder is normal. Spleen: Normal. Adrenals: Normal. Pancreas: Normal enhancement without evidence of mass. Kidneys/: The right and left kidney demonstrate normal enhancement without evidence of hydronephro sis or mass. Both ureters are normal. Pelvis: Contrast is seen in the urinary bladder. GI: There is a soft tissue mass, along the mesenteric root, 3.1 cm. This is unchanged from the prior study. No other abdominal mass is seen. Contrast is seen in the stomach duodenum and proximal third of the small bowel. The colon is normal. Vessels/spaces/nodes: Negative. Bones/soft tissues: There are postoperative changes with hardware in the lumbar spine. Visualized lung bases: Clear. IMPRESSION: Soft tissue mass along the root of the mesentery. This does not appear to communicate with bowel. Dif ferential diagnosis includes lymphoma, gastrointestinal stromal tumor, carcinoid, or metastasis. Due to its location, it would not be amenable to CT-guided biopsy. Report Dictated By: George Pruitt at 04/30/2018 9:13 AM Report E-Signed By: George Pruitt at 04/30/2018 9:27 AM WSN:[id number]
== END 2018-04-30 10:09 | disposition home or self-care (01) ==
LOC: ER 04:51
DX: R19.00 Intra-abdominal and pelvic swelling, mass and lump, unspecified site (principal); R10.11 Right upper quadrant pain; R10.12 Left upper quadrant pain; R11.2 Nausea with vomiting, unspecified
CPT/HCPCS: 74177; 81001; 82150; 83690; 85025; 96361; 96374; 96375; 96376; 99284; J2270; J2405; J3010; J7030; Q9967; 82040; 82247; 82310; 82374; 82435; 82565; 82947; 84075; 84132; 84155; 84295; 84450; 84460; 84520

== ENCOUNTER → 2018-05-12 | Outpatient (CLI) | payer MEDICARE, OTHER ==
[~2018-05-12] MED LIST changes: +LOR5/325 PO; +ONDA4TAB9 PO
== END ==
LOC: LAB 14:23
PROVIDERS: ATTEND Surgery
DX: M79.9 Soft tissue disorder, unspecified (principal)
CPT/HCPCS: 36415; 82378; 86301; 86304

== ENCOUNTER 2018-05-31 03:40 | Day surgery (SDC) | payer MEDICARE, OTHER ==
--- NOTE | 2018-05-27 14:13 | EKG ---
FACILITY: [facility] PATIENT NAME: CONSTANCE HERNANDEZ : [id number] MR: [id number] V: [id number] EXAM DATE: ORDERING PHYSICIAN: EMILY LOYA TECHNOLOGIST: SOLEDAD Test Reason : PRE OP Blood Pressure : / mmHG Vent. Rate : 069 BPM Atrial Rate : 069 BPM P-R Int : 180 ms QRS Dur : 086 ms QT Int : 378 ms P-R-T Axes : 077 064 044 degrees QTc Int : 405 ms Normal sinus rhythm Septal infarct , age undetermined Abnormal ECG Confirmed by STEFFANIE DAVIES ([id number]) on 05/27/2018 11:16:29 PM Referred By: VINCENZO Confirmed By:STEFFANIE DAVIES
[2018-05-31] VITALS (7 sets, daily range): BP systolic 89–107; BP diastolic 40–57
[~2018-05-31] VITALS: Ht 162.6 cm; Wt 55.3 kg
[~2018-05-31 03:40] MED LIST changes: +CHOL10005 PO; +SCOP1PAT16
[2018-05-31] MEDS ORDERED: fentaNYL CITR 250 MCG/5 ML AMP ONE (08:10)
[2018-05-31] MEDS ORDERED: PROPOFOL EMUL(*) 10MG/ML 20 ML 0 ML ONE (08:15)
[2018-05-31] MEDS ORDERED: LIDOCAINE MPF 1% 5 ML VIAL ONE (08:15)
[2018-05-31] MEDS ORDERED: ceFAZolin(*) 2GM/D5W 50ML 50 ML IVPB ONE (10:05)
[2018-05-31] MEDS ORDERED: MIDAZOLAM 2 MG/2 ML VIAL IVP PRN (10:05)
[2018-05-31] MEDS ORDERED: NORMOSOL R SOLN(*) 1000 ML BAG 1,000 ML IV PRN (10:05)
[2018-05-31] MEDS ORDERED: LIDOCAINE/SOD BICARB 8.4% SYR ID ONE (10:05)
[2018-05-31] MEDS ORDERED: PROPOFOL EMUL(*) 10MG/ML 20 ML 20 ML ONE (11:00)
[2018-05-31] MEDS ORDERED: BUPIVACAINE/EPI 0.5% 50ML VIAL INFIL ONE (11:50)
[2018-05-31] MEDS ORDERED: DEXAMETHASONE SOD 4 MG/ML VIAL ONE (12:01)
[2018-05-31] MEDS ORDERED: ONDANSETRON 4 MG/2 ML VIAL ONE (12:02)
[2018-05-31] MEDS ORDERED: SUGAMMADEX SOD 200 MG/2 ML SDV ONE (12:46)
[2018-05-31] MEDS ORDERED: fentaNYL CITR 100 MCG/2 ML AMP ONE ×2 (13:13→13:44)
--- NOTE | 2018-05-31 13:51 | Short(Outpt) Discharge Summary ---
Discharge Summary Reason for Hosp/Final Diag: (1) Abdominal mass Hospital Course & Plan: pt presented for dx lap and bx of abd mass. she tolerated the procedure well and there were no complications. she will be discharged home when criteria met. Departure Discharge to: Home Discharge Instructions Home Meds Active Scripts Meloxicam (MELOXICAM) 7.5 Mg Tablet, 2 TAB PO QDAY, #180 TAB 3 Refills Take 1-2 tabs a day as needed. Maximum of 2 tabs a day Prov:CALLIE GARLAND MD 02/28/18 Metoprolol Succinate (METOPROLOL SUCCINATE) 25 Mg Tab.er.24h, 1 TAB PO QDAY, #90 TAB 3 Refills Prov:CALLIE GARLAND MD 02/25/18 Simvastatin (SIMVASTATIN) 40 Mg Tablet, 40 MG PO HS, #90 TAB 3 Refills Prov:CALLIE GARLAND MD 02/23/18 Reported Medications Scopolamine (Scopolamine) 1 Mg/3 Day Patch.td.3 05/27/18 Cholecalciferol (Vitamin D3) (VITAMIN D3) 1,000 Unit Tablet, 1000 UNIT PO QDAY, TAB 05/27/18 Aspirin (ASPIR 81) 81 Mg Tablet.dr, 81 MG PO QDAY, TAB 02/18/17 Biotin (Jae Biotin) 10,000 Mcg Capsule, 85873 MCG PO DAILY 01/15/15 Diet: Regular Activity: As Tolerated Special Instructions: ok to shower tomorrow. tylenol ok for pain. call if you need something stronger. i will call you in about 1 wk with biopsy results. EMILY LOYA May 31, 2018 13:51
[2018-05-31] MEDS ORDERED: ACETAMINOPHEN 500 MG TAB PO ONE (15:00)
--- NOTE | 2018-05-31 15:03 | Post Operative Progress Note ---
Post Operative Progress Note Date: May 31, 2018 Time: 14:58 Surgeon: dr. nikhil ayon #[id number] [facility] Assistant: none Anesthesia: gen, local dr. rahman Pre-Op Diagnosis: intraabd mass Post-Op Diagnosis: same Findings: intraabd mass Procedure(s): dx lap, bx Specimen Removed:(May be N/A): bx intraabd mass Complications: none Fluids: iv crystalloid Estimated Blood Loss: minimal Date OP Note Dictated: May 31, 2018 Time OP Note Dictated: 14:59 EMILY AYON May 31, 2018 15:03
--- NOTE | 2018-05-31 15:44 | OPERATIVE REPORT 1 ---
EVENT DATE: May 31, 2018 SURGEON: Keyon Shine MD ANESTHESIOLOGIST: Nick Mccartney MD ANESTHESIA: General and local. CONTRACT POST OFFICE CLERK: None. PREOPERATIVE DIAGNOSIS Intra-abdominal mass. POSTOPERATIVE DIAGNOSIS Intra-abdominal mass. PROCEDURE PERFORMED Diagnostic laparoscopy and biopsy of intra-abdominal mass. FLUIDS IV crystalloid. ESTIMATED BLOOD LOSS Minimal. SPECIMENS Intra-abdominal mass specimen. COMPLICATIONS None. INDICATIONS This is a 77-year-old female with intermittent abdominal pain. CT scan showed a several centimeter intra-abdominal mass in the mesentery of the small intestine. Tumor markers were negative. Risks and benefits of the procedure were explained, and consent was signed. DESCRIPTION OF PROCEDURE Patient was taken to the operating room, placed in the supine position. General anesthesia was administered per anesthesia team. Patient was prepped and draped in normal sterile fashion. Local analgesia was injected into the dermis above the umbilicus, and a 5 mm vertical incision was made. The umbilical stump was grasped and elevated. A Veress needle was inserted. Pneumoperitoneum was achieved. Veress needle was removed. A 5 mm port was advanced. After injecting local analgesia under direct vision, a 5 mm right-sided port and a 5 mm left-sided port were placed. I inspected the abdomen. There was no injury upon entry. During the procedure, much of the abdomen was inspected. The liver was unremarkable except for a small amount of scarring near the gallbladder. Gallbladder was unremarkable. The left ovary was unremarkable. The right ovary had a cyst in one area where it appeared that the capsule was not intact; however, the size was normal, and there was no fungating mass. What was inspected of the small intestine and colon was within normal limits, as was the stomach. There were no peritoneal implants that were seen. The mass was quickly identified as at the base of the small bowel mesentery. It was several centimeters in size. It was indurated. It had a whitish appearance to a portion of it. Scissors were used to biopsy this mass sharply. Hemostasis was assured. The specimen was removed in a finger of a glove. Three pieces of tissue were removed. A small amount of irrigation was used and, again, hemostasis was confirmed. Ports were removed under direct vision. Hemostasis was assured. Pneumoperitoneum was released. Final port was removed. All skin incisions were closed with 4-0 Monocryl subcuticular stitches. More local analgesia was injected. Appropriate dressings were applied. Patient tolerated the procedure well. There were no complications. ROSA
--- NOTE | 2018-05-31 17:12 | NUR ---
1430 PT REC'D IN [place] VIA CART, SBAR FROM Breann ORTEGA, RN, SAFETY MAINTAINED, ROOM AIR TRIAL, BACK ON O2 2L NC, VSS, FAMILY AT BEDSIDE 1500 PT TOLERATING SALTINE CRACKERS, LOW 90S ON 2L, SPOKE WITH DR. LOYA ABOUT ORAL ANALGESICS, VO FOR APAP, ORDERED 1520 1000MG APAP ADMINISTERED TO PT ALONG WITH JELLO. PAIN MOSTLY IN R SHOULDER, NOT AT INCISIONAL SITES, ICE TO BELLY, DOWN TO 1L NC 1530 DOWN TO ROOM AIR, DR. LOYA AT BEDSIDE TO DISCUSS FINDINGS 1538 BACK UP TO 0.5L THEN 1L AFTER UNSUCCESSFUL RA TRIAL, ADVISED COUGHING AND DEEP BREATHING. COUGHING DOES NOT HURT, BUT DEEP INSPIRATION DOES, PAIN 06/29 1600 VSS, SATTING WELL ON 1L 1605 PT WOULD LIKE TO TRY WALKING LAPS TO IMPROVE O2 SATS, ORTHOSTATICS DONE, STABLE, PT DENIES DIZZINESS 1607 D/C FROM IV TUBING, SALINE LOCKED IV, PT BEGAN WALKING LAPS 1610 SWITCHED TO EAR PROBE FOR O2 SENSOR, 92-94%ON RA CONSISTENTLY 1620 ALLOWED TO DRESS 1630 IV OUT PRESSURE DRESSING APPLIED 1635 D/C INSTRUCTIONS COVERED WITH PT AND DAUGHTER, OUT TO CAR IN PARKING GARAGE, PT DECLINED WC, SELF TRANSFERRED TO CAR SAFELY, ALL BELONGINGS WITH PT
== END 2018-05-31 14:30 | disposition home or self-care (01) ==
LOC: OR 03:40
PROVIDERS: ATTEND Surgery
DX: R19.00 Intra-abdominal and pelvic swelling, mass and lump, unspecified site (principal); E03.9 Hypothyroidism, unspecified; E78.5 Hyperlipidemia, unspecified; I49.9 Cardiac arrhythmia, unspecified
CPT/HCPCS: 49321; 88305; 88312; 88313; 93005; A9270; J1100; J2001; J2405; J2704; J3010; J0690

== ENCOUNTER 2018-08-10 14:33 | Outpatient (RCR) | payer MEDICARE, OTHER ==
[~2018-08-10 14:33] MED LIST changes: -OMEP-125 PO; +OMEP-126 PO; -RANI-366 PO; +RANI-54 PO
[2018-08-11 08:08] VITALS: BP 122/58
--- NOTE | 2018-08-11 14:28 | ONCOLOGY HISTORY AND PHYSICAL ---
EVENT DATE: August 11, 2018 REFERRING PROVIDER Keyon Shine MD REASON FOR CONSULTATION Abdominal mass. CHIEF COMPLAINT Occasional abdominal discomfort. HISTORY OF PRESENT ILLNESS Luiza is a delightful 78-year old female with a history of paroxysmal SVT, hyperlipidemia, gastroesophageal reflux disease, hypothyroidism and reported history of pancreatitis in 2006, at which time a 4 cm "mass" was noted but biopsy was negative. She also has undergone hysterectomy as well as prophylactic bilateral mastectomies in 1977, per her medical record. The patient had recently presented with complaints of abdominal pain, mostly in the upper quadrants and at times radiating into her back. She had also developed nausea and dry heaves. At that time, she had no changes in her bowel habits. She was seen in the emergency department and a CT scan of the abdomen and pelvis was performed. This revealed a soft tissue mass along the route of the mesentery. It was measured to be about 3.1 cm and it had also apparently been noted on prior studies and without change. There was no other abdominal mass or finding to suggest primary malignancy. Of note, the patient reports that she has been up to speed on screening colonoscopies. She was taken for laparoscopic biopsy of this mass by Dr. Shine in late May. Surgical pathology from this biopsy reveals fibrosis with mild chronic inflammation and focal granulation tissue but was negative for malignancy. Since that time, the patient has been doing fairly well. She does report occasional abdominal pain at times, again mostly in the upper abdominal quadrants and at times radiating to the back. Her appetite has been good and her weight has been stable. She has had no fever, chills or sweats. She reports no abnormal bleeding. She has had no changes in her bowel habits. She reports no new urinary symptoms. She denies shortness of breath, chest pain and productive cough. PAST MEDICAL HISTORY 1. History of reported pancreatitis in 2006 and concern for "mass", biopsy negative. 2. History of paroxysmal SVT, controlled with metoprolol. 3. History of migraine headaches, not currently active. 4. Osteoarthritis. 5. Osteopenia. 6. Hypothyroidism. PAST SURGICAL HISTORY 1. Cataract surgery in 2016. 2. Hysterectomy in 1982. 3. Bilateral mastectomies, reportedly performed prophylactically in 1977. 4. Right and left knee arthroscopies. 5. Carpal tunnel surgery. 6. Lumbar and cervical spinal surgery. 7. Total joint replacement, March 2016. CURRENT MEDICATIONS 1. Simvastatin. 2. Metoprolol. 3. Tylenol p.r.n. 4. Biotin. 5. Baby aspirin daily. 6. Ibuprofen p.r.n. 7. Vitamin D3. 8. Tums p.r.n. ALLERGIES Solifenacin, erythromycin, rofecoxib, NSAIDs, levothyroxine and Tramadol. SOCIAL HISTORY The patient is retired from [employer] at the [employer]. She is a nonsmoker and nondrinker. There is no history of illicit drug use. She did smoke previously but had quit in 1987. She has a daughter, age 53. She is . FAMILY HISTORY History of breast cancer in her mother, who is now . Her mother also had a history of colon cancer. Her father had a possible history of prostate cancer. Her son has a history of prostate cancer diagnosed at age 47, now . Her daughter has a history of melanoma diagnosed at age 50. VITAL SIGNS Temperature 98.0, blood pressure 122/68, heart rate 60, respirations 16, oxygen saturation 92% on room air, weight 129.5 pounds. PHYSICAL EXAMINATION GENERAL: Patient is alert and oriented x3, no apparent distress, sitting in the exam room chair. HEENT: Anicteric sclerae. NEUROLOGIC: Grossly nonfocal. Gait is normal. EXTREMITIES: No edema, clubbing or cyanosis. There is no erythema or tenderness to palpation. SKIN: No concerning rash or lesion. LABORATORY STUDIES Reviewed per the [facility] record. IMAGING AND PATHOLOGY Please see history and present illness. ASSESSMENT AND PLAN Mesenteric mass in lower abdomen/upper pelvis. I had a good visit with Luiza and her daughter today. We spent time discussing her medical history as well as her more recent issues with abdominal pain and dyspepsia. We reviewed the results of her initial CT scan that did reveal what appeared to be a mesenteric mass. She has undergone laparoscopic biopsy of the mass but this was unrevealing for malignancy. The patient is understandably still concerned about what this mass could represent. We discussed several different possibilities but that it had been noted on prior imaging as well. The patient would like to have this mass removed. I have reviewed her situation with Dr. Shine. I have recommended that she visit with Dr. Milagro Doe, surgical oncologist with [facility] in [facility]. We discussed other options for her care in this regard, short of surgical resection. These include serial imaging but she is not particularly interested in moving this direction. We will work to get her seen as soon as possible with Dr. Doe and I will plan to see her back for oncologic followup if, indeed, there is concern for malignancy in this mass. The patient and her daughter had several additional questions for me today, and I believe I answered all of their questions to their satisfaction. I spent a total of 45 minutes with the patient and her daughter today and 30 minutes of this was spent in direct counseling and coordination of care. ROSA
[2018-09-21] MEDS ORDERED: WARF5TAB23 PO (10:56)
== END 2018-09-19 15:45 | disposition home or self-care (01) ==
LOC: ONC 14:33
PROVIDERS: ATTEND Internal Medicine Medical Oncology
DX: R19.09 Other intra-abdominal and pelvic swelling, mass and lump (principal)
CPT/HCPCS: 99203

== ENCOUNTER → 2018-09-30 | Outpatient (CLI) | payer MEDICARE, OTHER ==
[~2018-09-30] MED LIST changes: +AMIO200T49 PO; +ATOR20TA65 PO; +WARF5TAB23 PO
== END ==
LOC: LAB 09:20
PROVIDERS: ATTEND Surgery
DX: K92.2 Gastrointestinal hemorrhage, unspecified (principal)
CPT/HCPCS: 36415; 85027